=== PATIENT | male | born 1970 | race Caucasian/White ===

== ENCOUNTER 2021-12-30 14:32 | Observation (INO) ==
[2021-12-30] MEDS ORDERED: Iopamidol - 370 500 ML MLS IVP ONE (15:31)
[2021-12-30 15:49] LABS: Basophils % 0.7 %; Eosinophils # 0.1 K/mcL (0.0-0.6); Eosinophils % 2.5 %; Hematocrit 43.6 % (37.5-50.1); Hemoglobin 14.6 g/dL (12.9-16.9); Immature Granulocytes % 0.5 % (0-4); Lymphocytes # 1.7 K/mcL (0.6-4.6); Lymphocytes % 29.9 %; Mean Corpuscular HGB Conc 33.5 g/dL (31.6-35.5); Mean Corpuscular Hemoglobin 28.7 pg (28.0-33.3); Mean Corpuscular Volume 85.8 fL (83.0-100.0); Monocytes # 0.2 K/mcL (0.0-1.3); Monocytes % 3.7 %; Neutrophils # 3.5 K/mcL (1.6-8.9); Platelet Count 253 K/mcL (140-400); Red Blood Count 5.08 M/mcL (4.19-5.50); Segmented Neutrophils % 62.7 %; White Blood Count 5.7 K/mcL (4.3-11.1)
[2021-12-30 16:10] LABS: BUN/Creatinine Ratio 12 (6-26); Blood Urea Nitrogen 10 mg/dL (6-20); Calcium 9.3 mg/dL (8.6-10.3); Carbon Dioxide 28 mEq/L (23-29); Chloride 105 mEq/L (98-107); Glucose 262 mg/dL (70-105); Osmolality,Calculated 294 (280-300); Potassium 3.7 mEq/L (3.5-5.1); Sodium 138 mEq/L (136-145); eGFR For African Americans > 60 (> 60); eGFR For Non-African Americans > 60 (> 60)
[2021-12-30 16:11] LABS: Troponin I < 0.03 ng/mL (< 0.04)
[2021-12-30 20:14] LABS: Influenza A PCR Negative (Negative); Influenza B PCR Negative (Negative); Resp. Syncytial Virus PCR Negative (Negative)
[2021-12-30] MEDS ORDERED: *HR* Dextrose 50 % in Water (Syg) 50 ML SYRINGE IVP PRN (20:15)
[2021-12-30] MEDS ORDERED: D5% in Water 1,000 ML IVC PRN (20:15)
[2021-12-30] MEDS ORDERED: Dextrose Gel 15 GM/37.5 ML TUBE PO PRN ×2 (20:15)
[2021-12-30 20:17] LABS: SARS-CoV-2 by PCR (In House) Negative (Negative)
[2021-12-30] MEDS ORDERED: Aspirin Enteric Coated 325 MG Tablet PO STA (20:28)
[2021-12-30] MEDS ORDERED: Perflutren Lipid Microsphere 1.3 ML in 0.9 % Sodium Chloride 8.7 ML IVP PRN (20:28)
[2021-12-30] MEDS ORDERED: Nitroglycerin 0.4 MG TAB.SUBL SL PRN (20:30)
[2021-12-30] MEDS ORDERED: Morphine Sulfate 2 MG/ML SYRINGE IVP PRN (20:30)
[2021-12-30] MEDS ORDERED: Ondansetron 4 MG/2 ML VIAL IVP PRN (20:31)
[2021-12-30] MEDS ORDERED: Naloxone 0.4 MG/ML INJ IVP PRN (20:31)
[2021-12-30] MEDS ORDERED: Acetaminophen 325 MG TABLET PO PRN (20:31)
[2021-12-30] MEDS: *HR* Heparin 5,000 UNIT/ML VIAL SQ SCH (22:15)
[2021-12-31] MEDS: Insulin LISPRO 300 UNITS/3 ML VIAL SUBQ SCH ×4 (00:20→17:59)
[2021-12-31 04:34] LABS: Hematocrit 39.9 % (37.5-50.1); Hemoglobin 13.3 g/dL (12.9-16.9); Mean Corpuscular HGB Conc 33.3 g/dL (31.6-35.5); Mean Corpuscular Hemoglobin 28.8 pg (28.0-33.3); Mean Corpuscular Volume 86.4 fL (83.0-100.0); Platelet Count 217 K/mcL (140-400); Red Blood Count 4.62 M/mcL (4.19-5.50); Red Cell Distribution Width 12.2 % (11.5-14.5)
[2021-12-31 04:46] LABS: Prothrombin Time 11.6 Seconds (9.4-12.1)
[2021-12-31 04:48] LABS: Activated Partial Thrombo Time 30.5 Seconds (26.0-36.0)
[2021-12-31 04:50] LABS: BUN/Creatinine Ratio 13 (6-26); Blood Urea Nitrogen 10 mg/dL (6-20); Calcium 8.8 mg/dL (8.6-10.3); Carbon Dioxide 27 mEq/L (23-29); Chloride 107 mEq/L (98-107); Cholesterol 93 mg/dL (< 200); Glucose 140 mg/dL (70-105); HDL Cholesterol 31 mg/dL (40-59); LDL Cholesterol,Calculated 30 mg/dL (< 100); Osmolality,Calculated 291 (280-300); Potassium 3.6 mEq/L (3.5-5.1); Sodium 140 mEq/L (136-145); Triglycerides 160 mg/dL (< 150); eGFR For African Americans > 60 (> 60); eGFR For Non-African Americans > 60 (> 60)
[2021-12-31 04:53] LABS: Troponin I < 0.03 ng/mL (< 0.04)
[2021-12-31 05:08] LABS: Thyroid Stimulating Hormone 2.797 mcIU/mL (0.340-5.600)
[2021-12-31] MEDS: *HR* Heparin 5,000 UNIT/ML VIAL SQ SCH ×2 (05:45→14:57)
[2021-12-31] MEDS ORDERED: SUMAtriptan succinate 50 MG TABLET PO ONE (05:46)
[2021-12-31] MEDS ORDERED: Regadenoson 0.4 MG/5 ML SYRINGE IVP ONE (06:18)
[2021-12-31] MEDS ORDERED: Aspirin Enteric Coated 81 MG Tablet PO SCH (09:00)
[2021-12-31 10:28] LABS: Estimated Average Glucose 174 mg/dl; Hemoglobin A1C 7.7 %
[2021-12-31 13:50] LABS: Bilirubin,Urine Negative (Negative); Blood,Urine Negative (Negative); Clarity,Urine Clear (Clear); Color,Urine Light-Yellow (Yellow); Glucose,Urine (UA) Normal (Normal); Ketones,Urine Negative (Negative); Leukocyte Esterase,Urine Negative (Negative); Nitrite,Urine Negative (Negative); Protein,Urine Negative (Neg-Trace); Specific Gravity,Urine 1.025 (1.010-1.025); Urobilinogen,Urine Normal (Normal)
[2021-12-31] MEDS ORDERED: Ketorolac 30 MG/ML VIAL IVP ONE (15:04)
[2021-12-31] MEDS ORDERED: Prochlorperazine 10 MG/2 ML VIAL IVP PRN (15:04)
[2021-12-31] MEDS ORDERED: Iopamidol - 370 500 ML MLS IVP ONE (15:05)
[2021-12-31 18:43] VITALS: BP 134/79; PULSE 72; TEMP 97.6; O2SAT 97
[2021-12-31] MEDS ORDERED: Insulin LISPRO 300 UNITS/3 ML VIAL SUBQ SCH (21:00)
== END 2021-12-31 18:53 | disposition home or self-care (01) ==
LOC: EMEROOARM 14:32 → 3BNU 14:32 → SUATTDRO 19:25 → 3BNU 20:12
PROVIDERS: ADMIT Internal Medicine; ATTEND Nurse Practitioner